=== PATIENT | male | born 1950 | race Caucasian/White ===

== ENCOUNTER 2020-07-17 16:34 | Emergency (ER) | payer MEDICARE ==
--- NOTE | 2020-07-17 20:23 | ED ---
Psych HPI - General Chief Complaint: Psychiatric Symptoms Stated Complaint: Mental health Time Seen by Provider: 07/17/20 20:01 Source: patient, family, RN notes reviewed Mode of arrival: ambulatory - History of Present Illness Initial Comments: Patient is a 69-year-old male brought to emergency by his and daughter for dementia. They note that he needed an evaluation and a transfer noticeable hospital to a nursing facility that can take care of him. Daughter does have a friend at the nurse at [facility] and has secured a bed. He was pleasantly confused falling in bed during exam and interview. He is no apparent distress pain. He denied any chest pain first breath headache nausea vomiting diarrhea constipation fever fatigue chills. - Related Data Home Medications Medication Instructions Recorded Confirmed Escitalopram [Lexapro] 20 mg PO DAILY 07/17/20 07/17/20 LORazepam 0.5 mg PO DAILY PRN 07/17/20 07/17/20 LORazepam [Ativan] 1 mg PO BID 07/17/20 07/17/20 traZODone HCL [Desyrel] 150 mg PO HS 07/17/20 07/17/20 Allergies Allergy/AdvReac Type Severity Reaction Status Date / Time No Known Allergies Allergy Verified 07/17/20 21:16 Review of Systems ROS Statement: Those systems with pertinent positive or pertinent negative responses have been documented in the HPI. ROS Other: All systems not noted in ROS Statement are negative. Past Medical History Past Medical History: Dementia, Hyperlipidemia, Hypertension Additional Past Medical History / Comment(s): alzheimers History of Any Multi-Drug Resistant Organisms: None Reported Past Surgical History: Heart Catheterization With Stent, Orthopedic Surgery Additional Past Surgical History / Comment(s): testicle cancer Past Psychological History: No Psychological Hx Reported Smoking Status: Never smoker Past Alcohol Use History: None Reported Past Drug Use History: None Reported General Exam Limitations: physical limitation General appearance: alert, in no apparent distress Head exam: Present: atraumatic, normocephalic, normal inspection Eye exam: Present: normal appearance, PERRL, EOMI. Absent: scleral icterus, conjunctival injection, periorbital swelling Neck exam: Present: normal inspection. Absent: tenderness, meningismus, lymphadenopathy Respiratory exam: Present: normal lung sounds bilaterally. Absent: respiratory distress, wheezes, rales, rhonchi, stridor Cardiovascular Exam: Present: regular rate, normal rhythm, normal heart sounds. Absent: systolic murmur, diastolic murmur, rubs, gallop, clicks GI/Abdominal exam: Present: soft, normal bowel sounds. Absent: distended, te nderness, guarding, rebound, rigid Extremities exam: Present: normal inspection, full ROM, normal capillary refill. Absent: tenderness, pedal edema, joint swelling, calf tenderness Neurological exam: Present: alert, CN II-XII intact Psychiatric exam: Present: normal affect, normal mood Skin exam: Present: warm, dry, intact, normal color. Absent: rash Course Vital Signs 07/17/20 17:36 Temperature 98.1 F Pulse Rate 63 Respiratory 18 Rate Blood Pressure 155/84 O2 Sat by Pulse 98 Oximetry Medical Decision Making - Medical Decision Making 69-year-old male with dementia. Labs ordered. EPS aware. Case discussed with Dr. Adams. Patient will be transferred to [facility] for placement in a facility. Disposition Clinical Impression: Alzheimer's dementia Disposition: TRANSFER TO PSYCH HOSP/UNIT Condition: Stable Is patient prescribed a controlled substance at d/c from ED?: No Referrals: Nonstaff,Physician [Primary Care Provider] - 1-2 days Time of Disposition: 21:40
[2020-07-17 21:46] LABS: Glucose,Whole Blood 98 mg/dL (75-99)
[2020-07-17 22:06] LABS: HCT 40.3 % (39.0-53.0); HGB 14.6 gm/dL (13.0-17.5); MCH 33.1 pg (25.0-35.0); MCHC 36.3 g/dL (31.0-37.0); MCV 91.2 fL (80.0-100.0); Mean Platelet Volume 7.2; Platelet Count 174 k/uL (150-450); RBC 4.42 m/uL (4.30-5.90); RDW 12.6 % (11.5-15.5); WBC 6.4 k/uL (3.8-10.6)
[2020-07-17 22:24] LABS: ALT 22 U/L (4-49); AST 26 U/L (17-59); African American GFR (CKD) >90 (>60 ml/min/1.73 sqM); Albumin 4.2 g/dL (3.5-5.0); Alkaline Phosphatase 82 U/L (38-126); Anion Gap 11 mmol/L; Blood Urea Nitrogen 17 mg/dL (9-20); Calcium 9.1 mg/dL (8.4-10.2); Carbon Dioxide 21 mmol/L (22-30); Chloride 107 mmol/L (98-107); Glucose 103 mg/dL (74-99); Non-African American GFR(CKD) 80 (>60 ml/min/1.73 sqM); Potassium 3.8 mmol/L (3.5-5.1); Sodium 139 mmol/L (137-145); Total Bilirubin 0.8 mg/dL (0.2-1.3); Total Protein 7.2 g/dL (6.3-8.2)
[2020-07-17 23:01] VITALS: RESP 18
[2020-07-17] MEDS ORDERED: LORazepam 1 MG TAB PO STA (23:06)
[2020-07-17] MEDS ORDERED: traZODone HCL 50 MG TAB PO ONE (23:07)
[2020-07-18] MEDS ORDERED: LORazepam 2 MG/ML INJ IM STA (05:07)
[2020-07-18 05:29] LABS: Appearance,Urine Clear (Clear); Bacteria,Urine Rare /hpf; Bilirubin,Urine Negative (Negative); Blood,Urine Negative (Negative); Color,Urine Yellow; Glucose,Urine (UA) Negative (Negative); Ketones,Urine Negative (Negative); Leukocyte Esterase,Urine Trace (Negative); Mucus,Urine Many /hpf; Nitrite,Urine Negative (Negative); PH, Urine 5.5 (5.0-8.0); Protein,Urine Negative (Negative); RBC,Urine 1 /hpf (0-5); Specific Gravity,Urine 1.019 (1.001-1.035); Squamous Epithelial Cell,Urine 1 /hpf (0-4); Urobilinogen,Urine <2.0 mg/dL (<2.0); WBC,Urine 6 /hpf (0-5)
[2020-07-18 09:21] LABS: Urine Alcohol Negative (Negative); Urine Barbiturate Negative (Negative); Urine Cocaine Negative (Negative); Urine Methadone Negative (Negative); Urine Opiates Negative (Negative); Urine Phencyclidine Negative (Negative)
[2020-07-18 12:14] VITALS: BP 145/75; PULSE 65; TEMP 98.5
[2020-07-18] MEDS ORDERED: ZIPRASIDONE 20 MG VIAL IM STA (12:20)
== END 2020-07-18 12:40 ==
LOC: EC 16:34
DX: G30.9 Alzheimer's disease, unspecified (principal); F02.80 Dementia in other diseases classified elsewhere, unspecified severity, without behavioral disturbance, psychotic disturbance, mood disturbance, and anxiety; E78.5 Hyperlipidemia, unspecified; I10 Essential (primary) hypertension; Z79.899 Other long term (current) drug therapy; Z20.822 Contact with and (suspected) exposure to COVID-19
CPT/HCPCS: 99285; 96372 ×2; 36415; 80053; 85027; 81001; 80306; 87635; J2060; J3486

== ENCOUNTER 2021-05-04 13:40 | Observation (INO) | payer MEDICARE ==
--- NOTE | 2021-05-04 14:19 | ED ---
General Adult HPI - General Chief complaint: Psychiatric Symptoms Stated complaint: Mental Health Time Seen by Provider: 05/04/21 13:50 Source: patient, EMS, RN notes reviewed, old records reviewed Mode of arrival: EMS Limitations: altered mental status - History of Present Illness Initial comments: This is a 70-year-old male who presents emergency Department with a past medical history significant for dementia. Patient lives in adult foster care facility. According to family they do believe he's had some falls recently because of unstable last few days been unable to walk. Patient has been brought in today because he is becoming violent with staff and trying to bite and hit them. Family doesn't know much more than this because they are unable to see him regularly and the patient is unable to give any history at all. There's been no reported history of any fever there's been no reported history of significant trauma though family states they did indicate he threw himself on the floor one point. - Related Data Home Medications Medication Instructions Recorded Confirmed Acetaminophen Tab [Tylenol] 650 mg PO Q4H PRN 05/04/21 05/04/21 Benadryl [place] 2-0.1% 1 applic TOPICAL QID PRN 05/04/21 05/04/21 Cholecalciferol (Vitamin D3) 125 mcg PO DAILY@1800 05/04/21 05/04/21 [Vitamin D3 (125 MCG = 5,000 IU)] Clotrimazole/Betameth Cream 1 applic TOPICAL BID@0800,199905/04/21 05/04/21 [Lotrisone] Cyanocobalamin (Vitamin B-12) 1,000 mcg PO DAILY@0800 05/04/21 05/04/21 [Vitamin B-12] Divalproex Sprinkle [Depakote 250 mg PO BID@0800,1800 05/04/21 05/04/21 Sprinkle] Kaolin Pectin Suspension 2 tbsp PO DAILY PRN 05/04/21 05/04/21 Mag Hydrox/Aluminum Hyd/Simeth 15 ml PO BID PRN 05/04/21 05/04/21 [Mylanta Maximum Strength Liq] Magnesium Hydroxide [Milk of 2,400 mg PO HS PRN 05/04/21 05/04/21 Magnesia] Nystatin 100,000Unit/gm Cream 1 applic TOPICAL BID@0800,1800 05/04/21 05/04/21 [Mycostatin Cream] QUEtiapine [SEROquel] 25 mg PO BID@0800,1800 05/04/21 05/04/21 Triamcinolone 0.1% Cream [Kenalog 1 applicatio TOPICAL DAILY@0800 05/04/21 05/04/21 0.1% Cream] traZODone HCL 150 mg PO HS@1800 05/04/21 05/04/21 Allergies Allergy/AdvReac Type Severity Reaction Status Date / Time No Known Allergies Allergy Verified 05/04/21 18:03 Review of Systems ROS Statement: Those systems with pertinent positive or pertinent negative responses have been documented in the HPI. ROS Other: All systems not noted in ROS Statement are negative. Past Medical History Past Medical History: Cancer, Dementia, Hyperlipidemia, Hypertension Additional Past Medical History / Comment(s): alzheimers, testicular cancer History of Any Multi-Drug Resistant Organisms: None Reported Past Surgical History: Heart Catheterization With Stent, Orthopedic Surgery Additional Past Surgical History / Comment(s): testicle cancer Past Psychological History: No Psychological Hx Reported Smoking Status: Never smoker Past Alcohol Use History: None Reported Past Drug Use History: None Reported - Past Family History Father Family Medical History: Myocardial Infarction ([place]) Additional Family Medical History / Comment(s): young from [place] Brother(s) Family Medical History: Myocardial Infarction ([place]) Additional Family Medical History / Comment(s): young from [place] General Exam - General Exam Comments Initial Comments: GENERAL: Patient is well-developed and well-nourished. Patient is nontoxic and well- hydrated and is in no acute distress. Patient gets irritated with any kind of physical touching it is difficult to assess adjacent any pain anywhere ENT: Neck is soft and supple. No significant lymphadenopathy is noted. Oropharynx is clear. Moist mucous membranes. Neck has full range of motion without eliciting any pain. EYES: The sclera were anicteric and conjunctiva were pink and moist. Extraocular movements were intact and pupils were equal round and reactive to light. Eyelids were unremarkable. PULMONARY: Unlabored respirations. Good breath sounds bilaterally. No audible rales rhonchi or wheezing was noted. CARDIOVASCULAR: There is a regular rate and rhythm without any murmurs gallops or rubs. ABDOMEN: Soft and nontender with normal bowel sounds. SKIN: Skin is clear with no lesions or rashes and otherwise unremarkable. NEUROLOGIC: Patient is alert and oriented 0 which according to family this is baseline. Cranial nerves II through XII are grossly intact. Patient appears to move his upper extremities fine but it is difficult to assess lower extremities consistent does not follow commands MUSCULOSKELETAL: Patient moves both lower extremities but not very much so it's difficult to tell if he has any discomfort in his legs. No lower extremity swelling or edema. No calf tenderness. LYMPHATICS: No significant lymphadenopathy is noted PSYCHIATRIC: Unable to evaluate Limitations: altered mental status Course Vital Signs 05/04/21 05/04/21 05/04/21 13:49 16:00 19:00 Temperature 98.1 F 99.2 F Pulse Rate 86 98 76 Respiratory 20 22 16 Rate Blood Pressure 143/96 151/87 146/81 O2 Sat by Pulse 99 97 94 L Oximetry Medical Decision Making - Medical Decision Making Patient received monoclonal antibodies. Patient received some potassium chloride Patient received normal saline a liter for dehydration. - Lab Data Result diagrams: 05/04/21 15:49 05/04/21 15:49 Lab Results 05/04/21 05/04/21 05/04/21 Range/Units 15:42 15:49 15:49 WBC 5.1 (3.8-10.6) k/uL RBC 4.23 L (4.30-5.90) m/uL Hgb 13.4 (13.0-17.5) gm/dL Hct 39.3 (39.0-53.0) % MCV 92.9 (80.0-100.0) fL MCH 31.7 (25.0-35.0) pg MCHC 34.2 (31.0-37.0) g/dL RDW 13.3 (11.5-15.5) % Plt Count 121 L (150-450) k/uL MPV 8.7 Neutrophils % 75 % Lymphocytes % 14 % Monocytes % 7 % Eosinophils % 0 % Basophils % 0 % Neutrophils # 3.8 (1.3-7.7) k/uL Lymphocytes # 0.7 L (1.0-4.8) k/uL Monocytes # 0.4 (0-1.0) k/uL Eosinophils # 0.0 (0-0.7) k/uL Basophils # 0.0 (0-0.2) k/uL Sodium 139 (137-145) mmol/L Potassium 3.2 L (3.5-5.1) mmol/L Chloride 103 (98-107) mmol/L Carbon Dioxide 28 (22-30) mmol/L Anion Gap 8 mmol/L BUN 28 H (9-20) mg/dL Creatinine 1.14 (0.66-1.25) mg/dL Est GFR (CKD-EPI)AfAm 76 (>60 ml/min/1.73 sqM) Est GFR (CKD-EPI)NonAf 66 (>60 ml/min/1.73 sqM) Glucose 99 (74-99) mg/dL Calcium 8.3 L (8.4-10.2) mg/dL Total Bilirubin 0.8 (0.2-1.3) mg/dL AST 66 H (17-59) U/L ALT 36 (4-49) U/L Alkaline Phosphatase 62 (38-126) U/L Total Protein 6.7 (6.3-8.2) g/dL Albumin 3.3 L (3.5-5.0) g/dL Vitamin B12 1474.0 H (200.0-944.0) pg/mL Folate 10.10 (4.40-31.00) ng/mL Urine Color Urine Appearance (Clear) Urine pH (5.0-8.0) Ur Specific [place] (1.001-1.035) Urine Protein (Negative) Urine Glucose (UA) (Negative) Urine Ketones (Negative) Urine Blood (Negative) Urine Nitrite (Negative) Urine Bilirubin (Negative) Urine Urobilinogen (<2.0) mg/dL Ur Leukocyte Esterase (Negative) Urine RBC (0-5) /hpf Urine WBC (0-5) /hpf Ur Squamous Epith Cells (0-4) /hpf Urine Mucus (None) /hpf Urine Opiates Screen (NotDetected) Ur Oxycodone Screen (NotDetected) Urine Methadone Screen (NotDetected) Ur Propoxyphene Screen (NotDetected) Ur Barbiturates Screen (NotDetected) Valproic Acid 18.8 ug/mL U Tricyclic Antidepress (NotDetected) Ur Phencyclidine Scrn (NotDetected) Ur Amphetamines Screen (NotDetected) U Methamphetamines Scrn (NotDetected) U Benzodiazepines Scrn (NotDetected) Urine Cocaine Screen (NotDetected) U Marijuana (THC) Screen (NotDetected) Serum Alcohol <10 mg/dL Coronavirus (PCR) (Not Detectd) 05/04/21 05/04/21 Range/Units 15:49 16:55 WBC (3.8-10.6) k/uL RBC (4.30-5.90) m/uL Hgb (13.0-17.5) gm/dL Hct (39.0-53.0) % MCV (80.0-100.0) fL MCH (25.0-35.0) pg MCHC (31.0-37.0) g/dL RDW (11.5-15.5) % Plt Count (150-450) k/uL MPV Neutrophils % % Lymphocytes % % Monocytes % % Eosinophils % % Basophils % % Neutrophils # (1.3-7.7) k/uL Lymphocytes # (1.0-4.8) k/uL Monocytes # (0-1.0) k/uL Eosinophils # (0-0.7) k/uL Basophils # (0-0.2) k/uL Sodium (137-145) mmol/L Potassium (3.5-5.1) mmol/L Chloride (98-107) mmol/L Carbon Dioxide (22-30) mmol/L Anion Gap mmol/L BUN (9-20) mg/dL Creatinine (0.66-1.25) mg/dL Est GFR (CKD-EPI)AfAm (>60 ml/min/1.73 sqM) Est GFR (CKD-EPI)NonAf (>60 ml/min/1.73 sqM) Glucose (74-99) mg/dL Calcium (8.4-10.2) mg/dL Total Bilirubin (0.2-1.3) mg/dL AST (17-59) U/L ALT (4-49) U/L Alkaline Phosphatase (38-126) U/L Total Protein (6.3-8.2) g/dL Albumin (3.5-5.0) g/dL Vitamin B12 (200.0-944.0) pg/mL Folate (4.40-31.00) ng/mL Urine Color Dark Yellow Urine Appearance Clear (Clear) Urine pH 6.0 (5.0-8.0) Ur Specific [place] 1.031 (1.001-1.035) Urine Protein 1+ H (Negative) Urine Glucose (UA) Negative (Negative) Urine Ketones 1+ H (Negative) Urine Blood Negative (Negative) Urine Nitrite Negative (Negative) Urine Bilirubin 1+ H (Negative) Urine Urobilinogen 8.0 (<2.0) mg/dL Ur Leukocyte Esterase Small H (Negative) Urine RBC <1 (0-5) /hpf Urine WBC 8 H (0-5) /hpf Ur Squamous Epith Cells 4 (0-4) /hpf Urine Mucus Rare H (None) /hpf Urine Opiates Screen Not Detected (NotDetected) Ur Oxycodone Screen Not Detected (NotDetected) Urine Methadone Screen Not Detected (NotDetected) Ur Propoxyphene Screen Not Detected (NotDetected) Ur Barbiturates Screen Not Detected (NotDetected) Valproic Acid ug/mL U Tricyclic Antidepress Detected H (NotDetected) Ur Phencyclidine Scrn Not Detected (NotDetected) Ur Amphetamines Screen Not Detected (NotDetected) U Methamphetamines Scrn Not Detected (NotDetected) U Benzodiazepines Scrn Not Detected (NotDetected) Urine Cocaine Screen Not Detected (NotDetected) U Marijuana (THC) Screen Not Detected (NotDetected) Serum Alcohol mg/dL Coronavirus (PCR) Detected A (Not Detectd) Disposition Clinical Impression: COVID-19, Dehydration, Acute psychosis, Hypokalemia Disposition: ADMITTED IP TO THIS HOSP
[2021-05-04] MEDS ORDERED: ZIPRASIDONE 20 MG VIAL IM STA (15:08)
[2021-05-04] MEDS ORDERED: LORazepam 2 MG/ML INJ IM STA (15:14)
[2021-05-04 16:16] LABS: ALT 36 U/L (4-49); AST 66 U/L (17-59); African American GFR (CKD) 76 (>60 ml/min/1.73 sqM); Albumin 3.3 g/dL (3.5-5.0); Alcohol <10 mg/dL; Alkaline Phosphatase 62 U/L (38-126); Anion Gap 8 mmol/L; Basophils % (A) 0 %; Blood Urea Nitrogen 28 mg/dL (9-20); Calcium 8.3 mg/dL (8.4-10.2); Carbon Dioxide 28 mmol/L (22-30); Chloride 103 mmol/L (98-107); Eosinophils % (A) 0 %; Glucose 99 mg/dL (74-99); HCT 39.3 % (39.0-53.0); HGB 13.4 gm/dL (13.0-17.5); Lymphocytes # (A) 0.7 k/uL (1.0-4.8); Lymphocytes % (A) 14 %; MCH 31.7 pg (25.0-35.0); MCHC 34.2 g/dL (31.0-37.0); MCV 92.9 fL (80.0-100.0); Mean Platelet Volume 8.7; Monocytes # (A) 0.4 k/uL (0-1.0); Monocytes % (A) 7 %; Neutrophils # (A) 3.8 k/uL (1.3-7.7); Neutrophils % (A) 75 %; Non-African American GFR(CKD) 66 (>60 ml/min/1.73 sqM); Platelet Count 121 k/uL (150-450); Potassium 3.2 mmol/L (3.5-5.1); RBC 4.23 m/uL (4.30-5.90); RDW 13.3 % (11.5-15.5); Sodium 139 mmol/L (137-145); Total Bilirubin 0.8 mg/dL (0.2-1.3); Total Protein 6.7 g/dL (6.3-8.2); WBC 5.1 k/uL (3.8-10.6)
[2021-05-04 16:20] LABS: Valproic Acid (Depakene) 18.8 ug/mL
--- NOTE | 2021-05-04 16:32 | CT ---
EXAMINATION TYPE: CT brain andree wo con DATE OF EXAM: 05/04/2021 COMPARISON: None HISTORY: trauma, inability to walk CT DLP: 1462.7 mGycm, Automated exposure control for dose reduction was used. CONTRAST: Patient injected with 0 mL of Isovue 300. CT of the brain is performed utilizing 3 mm thick sections through the posterior fossa and 3 mm thick sections through the remaining calvarium. Study is performed within 24 hours of arrival to the hospital. No abnormal hyperdensity is present to suggest an acute intracranial hemorrhage. No mass lesion is evident. No acute infarcts are evident. Ventricles and sulci are prominent for the patient age. Paranasal sinuses and mastoid air cells within the [id number] are clear. IMPRESSIONS: 1. Atrophy. 2. No acute intracranial process radiographically evident. CT cervical spine. COMPARISON: None CT of the cervical spine is performed in the axial plane at 2 mm thick sections. Reconstructed image s in the coronal, and sagittal plane are reviewed on the computer. No acute fractures are evident. There is some straightening of the cervical spine in the sagittal plane. There is narrowing of the disc height at C5-C6. Uncovertebral joint hypertrophy is present bilaterall y contributing to bilateral moderate foraminal narrowing. Milder degenerative disc changes are presen t through the remaining portions of the cervical spine. Prevertebral space is normal. Some anterior vertebral body spurring is noted. Posterior spinal lamell ar line is intact. Vertebral body heights are preserved. No spinal canal stenosis is evident. IMPRESSIONS: 1. Degenerative disc changes greatest at C5-6. 2. Uncovertebral joint hypertrophy contributing to moderate bilateral C5-6 foraminal narrowing.
--- NOTE | 2021-05-04 16:58 | CT ---
EXAMINATION TYPE: CT pelvis wo con DATE OF EXAM: 05/04/2021 COMPARISON: None HISTORY: trauma, inability to walk CT DLP: 430.8 mGycm Automated exposure control for dose reduction was used. Images obtained from the level of L4 to the proximal femurs without contrast. There is a mild degenerative first degree L4-5 spondylolisthesis. The sacrum and coccyx appear intact sacroiliac joint spaces are fairly normal. Bony pelvis is intact. Pubic symphysis appears normal. Proximal femurs and hip joints appear intact. There is no evidence of hip fracture. Bladder distends smoothly. There is no evidence of a pelvic mass. There are sigmoid diverticula. Ther e is no diverticulitis. IMPRESSION: No evidence of a fracture. Mild sigmoid diverticulosis.
[2021-05-04] MEDS ORDERED: BAMLANIVIMAB (EUA) 700 MG, ETESEVIMAB (EUA) 1,400 MG in SODIUM CHLORIDE 0.9% 100 ML IVPB ONE (17:00)
[2021-05-04] MEDS ORDERED: SODIUM CHLORIDE 0.9% 50 ML IVPB ONE (17:00)
[2021-05-04 17:02] LABS: Appearance,Urine Clear (Clear); Bilirubin,Urine 1+ (Negative); Blood,Urine Negative (Negative); Color,Urine Dark Yellow; Glucose,Urine (UA) Negative (Negative); Ketones,Urine 1+ (Negative); Leukocyte Esterase,Urine Small (Negative); Mucus,Urine Rare /hpf; Nitrite,Urine Negative (Negative); Protein,Urine 1+ (Negative); RBC,Urine <1 /hpf (0-5); Specific Gravity,Urine 1.031 (1.001-1.035); Squamous Epithelial Cell,Urine 4 /hpf (0-4); WBC,Urine 8 /hpf (0-5)
[2021-05-04 17:09] LABS: Amphetamine Screen,Urine Not Detected (NotDetected); Barbiturate Screen,Urine Not Detected (NotDetected); Benzodiazepines Screen,Urine Not Detected (NotDetected); Cocaine Screen,Urine Not Detected (NotDetected); Methadone Screen, Urine Not Detected (NotDetected); Opiate Screen,Urine Not Detected (NotDetected); Oxycodone Screen, Urine Not Detected (NotDetected); Phencyclidine Screen,Urine Not Detected (NotDetected); Tricyclic Antidepressant,Urine Detected (NotDetected); Urn Cannabinoid Scrn Not Detected (NotDetected)
[2021-05-04] MEDS ORDERED: SODIUM CHLORIDE 0.9% 1,000 ML IV ONE ×2 (17:13→17:48)
[2021-05-04] MEDS ORDERED: POTASSIUM CHLORIDE 20 MEQ in WATER FOR INJECTION 1 100ML.BAG IVPB STA (17:16)
[2021-05-04] MEDS ORDERED: CALCIUM CARBONATE 500 MG CHEWABLE PO PRN (22:47)
[2021-05-04] MEDS ORDERED: NALOXONE 0.4 MG/ML 1 ML VIAL IV PRN (22:47)
[2021-05-04] MEDS ORDERED: ONDANSETRON 4 MG/2 ML VIAL IVP PRN (22:47)
--- NOTE | 2021-05-04 22:57 | P.HPIM ---
History of Present Illness H&P Date: 05/04/21 Chief Complaint: Abnormal behavior This is a 70-year-old patient, who was brought to the ER by the EMS. Patient's baseline is AO 1. By the staff patient has a history of dementia and has been worsening. He has been displaying aggressive behavior hitting and biting. Markus michel and the staff requested transport to the hospital for placement into geriatrics psych. No fever chills reported. Patient himself is unable to give any history. mumbling laying moving about in bed. Patient was evaluated by Dr. Ramos in the ER. Patient did test positive. No COVID symptoms are present. Because COVID patient cannot be admitted to the hospital psychiatry unit she be admitted to medicine service. In July of this year patient was transferred to [facility] for similar presentation. Patient in the ER was given BAM antibody. Review of systems: Patient unable to answer Past medical history to include: Dementia, hypertension, hyperlipidemia, Alzheimer's, testicle cancer, CAD with stent Social history: Apparently lives at [facility]. No history of alcohol or smoking reported. Family history: Patient cannot tell Physical examination: VITAL SIGNS: 99.2, 98, 22, 151/87, 97% on room air GENERAL: BMI 24.4, laying in bed, somewhat delirious. EYES: Pupils equal. Conjunctiva normal. HEENT: External appearance of nose and ears normal, oral cavity dry mucous membranes. NECK: JVD unable to assess; masses not palpable. HEART: First and second heart sounds are normal; no edema. LUNGS: Respiratory rate normal; clear to auscultation. ABDOMEN: Soft, nontender, liver spleen not palpable, no masses palpable. PSYCH: [Patient is delirious cannot be assessed. MUSCULOSKELETAL:No Clubbing/cyanosis;muscles-grossly intact. Some superficial bruising on the dose NEUROLOGICAL: [Cranial nerves grossly intact; no facial asymmetry, moving all 4 limbs LYMPHATICS: No lymph nodes palpable in the axilla and neck Assessment and plan: -Advanced cognitive impairment from dementia. Associated with aggressive behavior. Patient the ER did receive Geodon 20 mg IV 1. Also Ativan 2 mg IM 1. Sitter at all times until cleared by psychiatry. Consult psychiatry. -COVID 19. No fever or chills have been reported. His pulse ox is good on room air. Patient received BAM antibodies in the ER. No indication for steroids. -Hyperlipidemia Lipitor 20 mg daily at bedtime -Essential hypertension Catapres patch 0.1 -CAD with stent Aspirin 81 mg a day Aspirin. Catapres patch. Lipitor. Sitter. Psychiatry consultation. Patient has been medically cleared to be transferred to psychiatry placement/as evaluated by psychiatry team. Past Medical History Past Medical History: Cancer, Dementia, Hyperlipidemia, Hypertension Additional Past Medical History / Comment(s): alzheimers, testicular cancer History of Any Multi-Drug Resistant Organisms: None Reported Past Surgical History: Heart Catheterization With Stent, Orthopedic Surgery Additional Past Surgical History / Comment(s): testicle cancer Past Psychological History: No Psychological Hx Reported Smoking Status: Never smoker Past Alcohol Use History: None Reported Past Drug Use History: None Reported Medications and Allergies Home Medications Medication Instructions Recorded Confirmed Type Escitalopram [Lexapro] 20 mg PO DAILY@0800 07/17/20 05/04/21 History Acetaminophen Tab [Tylenol] 650 mg PO Q4H PRN 05/04/21 05/04/21 History Benadryl [place] 2-0.1% 1 applic TOPICAL QID PRN 05/04/21 05/04/21 History Cholecalciferol (Vitamin D3) 125 mcg PO DAILY@1800 05/04/21 05/04/21 History [Vitamin D3 (125 MCG = 5,000 IU)] Clotrimazole/Betameth Cream 1 applic TOPICAL BID@0800,2000 05/04/21 05/04/21 History [Lotrisone] Cyanocobalamin (Vitamin B-12) 1,000 mcg PO DAILY@0800 05/04/21 05/04/21 History [Vitamin B-12] Divalproex Sprinkle [Depakote 250 mg PO BID@0800,1800 05/04/21 05/04/21 History Sprinkle] Kaolin Pectin Suspension 2 tbsp PO DAILY PRN 05/04/21 05/04/21 History Mag Hydrox/Aluminum Hyd/Simeth 15 ml PO BID PRN 05/04/21 05/04/21 History [Mylanta Maximum Strength Liq] Magnesium Hydroxide [Milk of 2,400 mg PO HS PRN 05/04/21 05/04/21 History Magnesia] Nystatin 100,000Unit/gm Cream 1 applic TOPICAL BID@0800,1800 05/04/21 05/04/21 History [Mycostatin Cream] QUEtiapine [SEROquel] 25 mg PO BID@0800,1800 05/04/21 05/04/21 History Triamcinolone 0.1% Cream [Kenalog 1 applicatio TOPICAL DAILY@0800 05/04/21 05/04/21 History 0.1% Cream] guaiFENesin SYRUP 100MG/5ML 200 mg PO Q6H PRN 05/04/21 05/04/21 History [Robitussin] hydrOXYzine pamoate [Vistaril] 50 mg PO Q4H PRN 05/04/21 05/04/21 History traZODone HCL 150 mg PO HS@1800 05/04/21 05/04/21 History Allergies Allergy/AdvReac Type Severity Reaction Status Date / Time No Known Allergies Allergy Verified 05/04/21 18:03 Physical Exam Vitals: Vital Signs Temp Pulse Resp BP Pulse Ox 05/04/21 19:00 76 16 146/81 94 L 05/04/21 16:00 99.2 F 98 22 151/87 97 05/04/21 13:49 98.1 F 86 20 143/96 99 Intake and Output 05/04/21 05/04/21 05/04/21 06:59 14:59 22:59 Other: Weight 81.647 kg Results CBC & Chem 7: 05/04/21 15:49 05/04/21 15:49 Labs: Abnormal Lab Results - Last 24 Hours (Table) 05/04/21 05/04/21 05/04/21 Range/Units 15:49 15:49 15:49 RBC 4.23 L (4.30-5.90) m/uL Plt Count 121 L (150-450) k/uL Lymphocytes # 0.7 L (1.0-4.8) k/uL Potassium 3.2 L (3.5-5.1) mmol/L BUN 28 H (9-20) mg/dL Calcium 8.3 L (8.4-10.2) mg/dL AST 66 H (17-59) U/L Albumin 3.3 L (3.5-5.0) g/dL Urine Protein (Negative) Urine Ketones (Negative) Urine Bilirubin (Negative) Ur Leukocyte Esterase (Negative) Urine WBC (0-5) /hpf Urine Mucus (None) /hpf U Tricyclic Antidepress (NotDetected) Coronavirus (PCR) Detected A (Not Detectd) 05/04/21 Range/Units 16:55 RBC (4.30-5.90) m/uL Plt Count (150-450) k/uL Lymphocytes # (1.0-4.8) k/uL Potassium (3.5-5.1) mmol/L BUN (9-20) mg/dL Calcium (8.4-10.2) mg/dL AST (17-59) U/L Albumin (3.5-5.0) g/dL Urine Protein 1+ H (Negative) Urine Ketones 1+ H (Negative) Urine Bilirubin 1+ H (Negative) Ur Leukocyte Esterase Small H (Negative) Urine WBC 8 H (0-5) /hpf Urine Mucus Rare H (None) /hpf U Tricyclic Antidepress Detected H (NotDetected) Coronavirus (PCR) (Not Detectd)
[2021-05-05] MEDS ORDERED: LACTULOSE 20 GM/30 ML CUP PO PRN (09:00)
[2021-05-05] MEDS: QUEtiapine 25 MG TAB PO SCH ×2 (09:54→17:34)
[2021-05-05] MEDS: DIVALPROEX SPRINKLE 125 MG CAP.SPRINK PO SCH ×2 (09:54→17:34)
[2021-05-05] MEDS ORDERED: chlorproMAZINE 25 MG/ML 2 ML AMP IM PRN (12:59)
--- NOTE | 2021-05-05 13:38 | P.CN ---
Psychiatric Consult - . Consult date: 05/05/21 Consult:: 05/05/21 13:37 IDENTIFYING DATA: This patient is a , retired, 70-year-old male with significant history of major neurocognitive disorder presented to this hospital with acute behavioral changes in the context of covid infection. HISTORY OF PRESENT ILLNESS: The patient presented to the hospital on 05/04/2021, brought in from his intermediate due to increased violent and aggressive behaviors. The patient was determined to be Covid-19 positive and presented with a temperature of 100.3F on initial presenation. The recommendation is that the patient is transferred to a geriatric psychiatric unit however due to his Covid-19 positive status the patient is admitted medically with psychiatry consulted. The patient's home medications of Depakote, trazodone, and Seroquel were continued. The patient was able to take the morning dose of his medications. This provider attempted to evaluate the patient at approximately 1:00 p.m., however the patient is quite somnolent and unable to be woken up at this time. It is noted that the patient has verbalized threats towards his sitter and has had violent outbursts toward staff including swinging violently at them. Collateral information was provided by the patient's daughter Jailene Bates report that the patient had a significant decline since this past Radha. She reports that he was much more verbal and able to interact appropriately with his family. She states that since [place], the patient's speech has declined significantly and he has been more dysarthric. Furthermore, the patient has begun refusing medications which he was adherent to initially. The family is expressing concern as to whether the significant decline is secondary to Covid vs a natural progression of his dementia or a combination of both. The patient is currently under one-to-one supervision. PAST PSYCHIATRIC HISTORY: Patient has a history of major neurocognitive disorder. Patients on medication regimen includes Depakote, Lexapro, Seroquel, and trazodone. The patient has a previous admission to [facility]. No reported history of suicide attempts. PAST MEDICAL HISTORY: Past Medical History: Cancer, Dementia, Hyperlipidemia, Hypertension Additional Past Medical History / Comment(s): alzheimers, testicular cancer History of Any Multi-Drug Resistant Organisms: None Reported Past Surgical History: Heart Catheterization With Stent, Orthopedic Surgery Additional Past Surgical History / Comment(s): testicle cancer Past Psychological History: No Psychological Hx Reported Smoking Status: Never smoker Past Alcohol Use History: None Reported Past Drug Use History: None Reported ALLERGIES: NO KNOWN DRUG ALLERGIES CHEMICAL DEPENDENCY HISTORY: Unable to obtain. FAMILY PSYCHIATRIC/SUBSTANCE USE HISTORY: Family does not report any significant history. SOCIAL HISTORY: Patient is and has 3 daughters and 5 grandchildren. His is listed as his medical power of erisa attorney. He is currently a resident in a intermediate due to his advanced dementia. MENTAL STATUS EXAM: General Appearance: Patient appears to be older than stated age, frail, thin. Behavior: Patient is calmly lying in bed without any agitated behavior. Currently somnolent and snoring. Speech: Unable to assess speech at this time. Mood/Affect: Unable to assess mood. Affect is somnolent. Suicidality/Homicidality: Unable to assess. Perceptions: Unable to assess. Though content/process: Unable to assess. Memory and concentration: As per chart review, the patient is apparently alert and oriented 1 at baseline. Concentration is grossly poor. Judgment and insight: Very poor. IMPRESSIONS: Major neurocognitive disorder, with behavioral disturbances Suspect exacerbation of major neurocognitive disorder due to Covid-19 infection. PLAN: -At this time patient DOES meet criteria for inpatient psychiatric admission. We recommend geriatric psychiatric placement for management of major neurocognitive disorder with behavioral disturbances. -Patient DOES NOT have decision making capacity at this time and is unable to reason through and communicate/appreciate the risks, benefits and alternatives to treatment. -Delirium precautions recommended with patient including - avoiding use of narcotics and PHLEBOTOMY SUPERVISOR sedatives, limit anticholinergic medications when possible, frequent re-orientation, minimize use of restraints, open window shades during the day and close them at night -Would recommend the following medication changes/additions: Okay to continue home medications of Depakote 250 mg by mouth twice a day, Se roquel 25 mg by mouth twice a day, trazodone 150 mg by mouth at bedtime. For agitation, we will order Thorazine 25 mg IM every 6 hours when necessary. -We will order B12 and folate as there is concern that the patient is not eating as well. -We will order EKG for baseline. -Continue 1:1 sitter for safety -Will continue to follow along -When medically stable, patient is eligible for transfer to a geriatric psych bed when available. 05/05/21 13:37
[2021-05-05] MEDS: ACETAMINOPHEN TAB 325 MG TAB PO PRN (14:05)
[2021-05-05] MEDS: NYSTATIN 100,000UNIT/GM CREAM 30 GM TUBE TOPICAL SCH ×2 (14:24→17:34)
[2021-05-05] MEDS: CLOTRIMAZOLE/BETAMETH 1-0.05% CREAM 45 GM TUBE TOPICAL SCH ×2 (14:24→22:23)
[2021-05-05] MEDS: TRIAMCINOLONE 0.1% CREAM 80 GM TUBE TOPICAL SCH (14:24)
[2021-05-05] MEDS: traZODone HCL 50 MG TAB PO SCH (17:34)
--- NOTE | 2021-05-05 21:17 | P.PN ---
Progress Note - Text Progress Note Date: 05/05/21 Chief Complaint: Abnormal behavior This is a 70-year-old patient, who was brought to the ER by the EMS. Patient's baseline is AO 1. By the staff patient has a history of dementia and has been worsening. He has been displaying aggressive behavior hitting and biting. Family and the staff requested transport to the hospital for placement into geriatrics psych. No fever chills reported. Patient himself is unable to give any history. mumbling laying moving about in bed. Patient was evaluated by Dr. Ramos in the ER. Patient did test positive. No COVID symptoms are present. Because COVID patient cannot be admitted to the hospital psychiatry unit she be admitted to medicine service. In July of this year patient was transferred to [facility] for similar presentation. Patient in the ER was given BAM antibody. May 05: Patient remains restless. Cursing out at times. Refusing food. Did take some of his medications. No fever no chills. Seen by psychiatry. Thorazine has been ordered for agitation. Review of systems: Patient unable to answer Active Medications Acetaminophen (Acetaminophen Tab 325 Mg Tab) 650 mg PO Q4H PRN PRN Reason: FEVER, PAIN, OR HEADACHE Last Admin: 05/05/21 14:05 Dose: 650 mg Documented by: Betamethasone/Clotrimazole (Clotrimazole/Betameth 1-0.05% Cream 45 Gm Tube) 1 applic TOPICAL BID@0800,2000 [facility]; Protocol Last Admin: 05/05/21 14:24 Dose: Not Given Documented by: Calcium Carbonate/Glycine (Calcium Carbonate 500 Mg Chewable) 1,000 mg PO Q4HR PRN PRN Reason: Dyspepsia Chlorpromazine HCl (Chlorpromazine 25 Mg/Ml 2 Ml Amp) 25 mg IM Q6HR PRN PRN Reason: Agitation Divalproex Sodium (Divalproex Sprinkle 125 Mg Cap.Sprink) 250 mg PO BID@0800,1800 [facility] Last Admin: 05/05/21 17:34 Dose: 250 mg Documented by: Lactulose (Lactulose 20 Gm/30 Ml Cup) 20 gm PO DAILY PRN PRN Reason: Constipation Naloxone HCl (Naloxone 0.4 Mg/Ml 1 Ml Vial) 0.2 mg IV Q2M PRN PRN Reason: Opioid Reversal Nystatin (Nystatin 100,000unit/Gm Cream 30 Gm Tube) 1 applic TOPICAL BID@0800,1800 [facility]; Protocol Last Admin: 05/05/21 17:34 Dose: 1 applic Documented by: Ondansetron HCl (Ondansetron 4 Mg/2 Ml Vial) 4 mg IVP Q8HR PRN PRN Reason: Nausea And Vomiting Quetiapine Fumarate (Quetiapine 25 Mg Tab) 25 mg PO BID@0800,1800 [facility] Last Admin: 05/05/21 17:34 Dose: 25 mg Documented by: Trazodone HCl (Trazodone Hcl 50 Mg Tab) 150 mg PO HS@1800 [facility] Last Admin: 05/05/21 17:34 Dose: 150 mg Documented by: Triamcinolone Acetonide (Triamcinolone 0.1% Cream 80 Gm Tube) 1 applic TOPICAL DAILY@0800 [facility]; Protocol Last Admin: 05/05/21 14:24 Dose: Not Given Documented by: Past medical history to include: Dementia, hypertension, hyperlipidemia, Alzheimer's, testicle cancer, CAD with stent Social history: Apparently lives at [facility]. No history of alcohol or smoking reported. Family history: Patient cannot tell Physical examination: VITAL SIGNS: 99.7, 73, 18, 136.79, 97% room air GENERAL:, laying in bed, restless EYES: Pupils equal. Conjunctiva normal. HEENT: External appearance of nose and ears normal, oral cavity dry mucous membranes. NECK: JVD unable to assess; masses not palpable. HEART: First and second heart sounds are normal; no edema. LUNGS: Respiratory rate normal; clear to auscultation. ABDOMEN: Soft, nontender, liver spleen not palpable, no masses palpable. PSYCH: [Patient is delirious cannot be assessed. MUSCULOSKELETAL:No Clubbing/cyanosis;muscles-grossly intact. Some superficial bruising on the dose NEUROLOGICAL: [Cranial nerves grossly intact; no facial asymmetry, moving all 4 limbs Assessment and plan: -Advanced cognitive impairment from dementia. Associated with aggressive behavior.: Uncontrolled Thorazine 25 mg IM every 6 when necessary for agitation. Depakote. Seroquel 25 mg twice a day. Trazodone 150 mg daily at bedtime. Sitter at all times , forgetting psychiatric placement. -COVID 19. Pulse ox 97% received BAM antibodies in the ER. No indication for steroids. -Hyperlipidemia Lipitor 20 mg daily at bedtime -Essential hypertension Catapres patch 0.1 if needed -CAD with stent Aspirin 81 mg a day -No code Aspirin. Lipitor. Sitter. Thorazine. Depakote. Seroquel. Trazodone. Follow with psychiatry. Patient is medically stable to be transferred to [facility]
[2021-05-06] MEDS: ACETAMINOPHEN TAB 325 MG TAB PO PRN ×2 (01:56→18:05)
[2021-05-06] MEDS: QUEtiapine 25 MG TAB PO SCH ×2 (09:06→17:13)
[2021-05-06] MEDS: DIVALPROEX SPRINKLE 125 MG CAP.SPRINK PO SCH ×2 (09:06→17:13)
--- NOTE | 2021-05-06 13:18 | P.PN ---
Progress Note - Text Progress Note Date: 05/06/21 Interval History: Patient was seen resting in bed comfortably. He was able to be woken up but was quite somnolent and unable to provide any history to this provider. As per discussion with his nurse, the patient has been able to take his medications when given with apple sauce. He has been noted to like sweet fruits. He has displayed no agitated behaviors overnight and today. Tremors appear to be baseline. Mental Status Exam: General Appearance: Patient appears to be stated age is somnolent. Thin and frail build. Behavior: Patient is calmly seated without any agitated behavior. Stiff posturing with his mouth agape. Speech: Patient's speech is minimal, nonspontaneous. Mood/Affect: Unable to assess. Affect is somnolent. Suicidality/Homicidality: Unable to assess. Perceptions: Unable to assess. Though content/process: Unable to assess. Memory and concentration: Unable to assess. - Grossly poor at baseline. Judgment and insight: Unable to assess. - Grossly poor at baseline. Vital Signs Temp 99.9 F H 05/06/21 09:15 Pulse 79 05/06/21 09:15 Resp 18 05/06/21 09:15 BP 138/82 05/06/21 06:15 Pulse Ox 98 05/06/21 09:15 Intake & Output 05/05/21 05/06/21 05/06/21 18:59 06:59 18:59 Intake Total 200 Balance 200 Intake: Oral 200 Other: Voiding Method Diaper Diaper Incontinent Incontinent # Voids 2 # Bowel Movements 1 Laboratory Results - Last 24 Hours 05/04/21 15:42 Vitamin B12 1474.0 H Assessment Major neurocognitive disorder, with behavioral disturbances Suspect exacerbation of major neurocognitive disorder due to Covid-19 infection. Plan: -Continue your medical management. -At this time patient DOES meet criteria for inpatient psychiatric admission. We recommend geriatric psychiatric placement for management of major neurocognitive disorder with behavioral disturbances. If patient continues to display no significant agitated behaviors we may change our recommendation. -Patient DOES NOT have decision making capacity at this time and is unable to reason through and communicate/appreciate the risks, benefits and alternatives to treatment. -Delirium precautions recommended with patient including - avoiding use of narcotics and SALVAGE GRINDER sedatives, limit anticholinergic medications when possible, frequent re-orientation, minimize use of restraints, open window shades during the day and close them at night -Would recommend the following medication changes/additions: Continue Depakote 250 mg by mouth twice a day, Seroquel 25 mg by mouth twice a day, trazodone 150 mg by mouth at bedtime. For agitation, Thorazine 25 mg IM every 6 hours when necessary. -Continue 1:1 sitter for safety -Will continue to follow along -When medically stable, patient is eligible for transfer to a geriatric psych bed when available.
[2021-05-06] MEDS: NYSTATIN 100,000UNIT/GM CREAM 30 GM TUBE TOPICAL SCH ×2 (13:54→17:18)
[2021-05-06] MEDS: CLOTRIMAZOLE/BETAMETH 1-0.05% CREAM 45 GM TUBE TOPICAL SCH ×2 (13:54→19:00)
[2021-05-06] MEDS: TRIAMCINOLONE 0.1% CREAM 80 GM TUBE TOPICAL SCH (13:54)
--- NOTE | 2021-05-06 16:24 | P.PN ---
Progress Note - Text Progress Note Date: 05/06/21 Chief Complaint: Abnormal behavior This is a 70-year-old patient, who was brought to the ER by the EMS. Patient's baseline is AO 1. By the staff patient has a history of dementia and has been worsening. He has been displaying aggressive behavior hitting and biting. Family and the staff requested transport to the hospital for placement into geriatrics psych. No fever chills reported. Patient himself is unable to give any history. mumbling laying moving about in bed. Patient was evaluated by Dr. Ramos in the ER. Patient did test positive. No COVID symptoms are present. Because COVID patient cannot be admitted to the hospital psychiatry unit she be admitted to medicine service. In July of this year patient was transferred to [facility] for similar presentation. Patient in the ER was given BAM antibody. May 05: Patient remains restless. Cursing out at times. Refusing food. Did take some of his medications. No fever no chills. Seen by psychiatry. Thorazine has been ordered for agitation. May 06: Patient ate some applesauce. Did take his oral medications. Remains confused delirious. Sitter present. Review of systems: Patient unable to answer Active Medications Acetaminophen (Acetaminophen Tab 325 Mg Tab) 650 mg PO Q4H PRN PRN Reason: FEVER, PAIN, OR HEADACHE Last Admin: 05/06/21 01:56 Dose: 650 mg Documented by: Betamethasone/Clotrimazole (Clotrimazole/Betameth 1-0.05% Cream 45 Gm Tube) 1 applic TOPICAL BID@0800,2000 [facility]; Protocol Last Admin: 05/06/21 13:54 Dose: Not Given Documented by: Calcium Carbonate/Glycine (Calcium Carbonate 500 Mg Chewable) 1,000 mg PO Q4HR PRN PRN Reason: Dyspepsia Chlorpromazine HCl (Chlorpromazine 25 Mg/Ml 2 Ml Amp) 25 mg IM Q6HR PRN PRN Reason: Agitation Divalproex Sodium (Divalproex Sprinkle 125 Mg Cap.Sprink) 250 mg PO BID@0800,1800 [facility] Last Admin: 05/06/21 09:06 Dose: 250 mg Documented by: Lactulose (Lactulose 20 Gm/30 Ml Cup) 20 gm PO DAILY PRN PRN Reason: Constipation Naloxone HCl (Naloxone 0.4 Mg/Ml 1 Ml Vial) 0.2 mg IV Q2M PRN PRN Reason: Opioid Reversal Nystatin (Nystatin 100,000unit/Gm Cream 30 Gm Tube) 1 applic TOPICAL BID@0800,1800 [facility]; Protocol Last Admin: 05/06/21 13:54 Dose: Not Given Documented by: Ondansetron HCl (Ondansetron 4 Mg/2 Ml Vial) 4 mg IVP Q8HR PRN PRN Reason: Nausea And Vomiting Quetiapine Fumarate (Quetiapine 25 Mg Tab) 25 mg PO BID@0800,1800 [facility] Last Admin: 05/06/21 09:06 Dose: 25 mg Documented by: Trazodone HCl (Trazodone Hcl 50 Mg Tab) 150 mg PO HS@1800 [facility] Last Admin: 05/05/21 17:34 Dose: 150 mg Documented by: Triamcinolone Acetonide (Triamcinolone 0.1% Cream 80 Gm Tube) 1 applic TOPICAL DAILY@0800 [facility]; Protocol Last Admin: 05/06/21 13:54 Dose: Not Given Documented by: Past medical history to include: Dementia, hypertension, hyperlipidemia, Alzheimer's, testicle cancer, CAD with stent Social history: Apparently lives at [facility]. No history of alcohol or smoking reported. Family history: Patient cannot tell Physical examination: VITAL SIGNS: 99.5, 95, 18, 159 with 73, 97% room air GENERAL:, laying in bed, resting EYES: Pupils equal. Conjunctiva normal. HEENT: External appearance of nose and ears normal, oral cavity dry mucous membranes. NECK: JVD unable to assess; masses not palpable. HEART: First and second heart sounds are normal; no edema. LUNGS: Respiratory rate normal; clear to auscultation. ABDOMEN: Soft, nontender, liver spleen not palpable, no masses palpable. PSYCH: Patient unable to answer questions. MUSCULOSKELETAL:No Clubbing/cyanosis;muscles-grossly intact. Some superficial bruising on the toes NEUROLOGICAL: [Cranial nerves grossly intact; no facial asymmetry, does move all his limbs Assessment and plan: -Advanced cognitive impairment from dementia. Associated with aggressive behavior.: Uncontrolled Thorazine 25 mg IM every 6 when necessary for agitation. Depakote. Seroquel 25 mg twice a day. Trazodone 150 mg daily at bedtime. Sitter at all times , forgetting psychiatric placement. -COVID 19. Pulse ox 97% received BAM antibodies in the ER. No indication for steroids. -Hyperlipidemia Lipitor 20 mg daily at bedtime -Essential hypertension Catapres patch 0.1 if needed -CAD with stent Aspirin 81 mg a day -No code Aspirin. Lipitor. Sitter. Thorazine. Depakote. Seroquel. Trazodone. Follow with psychiatry. Patient is medically stable to be transferred to [facility]
[2021-05-06 17:07] LABS: Folate, Serum 10.1 ng/mL (4.40-31.00)
[2021-05-06] MEDS: traZODone HCL 50 MG TAB PO SCH (17:13)
[2021-05-07] MEDS: DIVALPROEX SPRINKLE 125 MG CAP.SPRINK PO SCH ×2 (09:29→17:10)
[2021-05-07] MEDS: QUEtiapine 25 MG TAB PO SCH ×2 (09:30→17:10)
--- NOTE | 2021-05-07 13:42 | P.PN ---
Progress Note - Text Progress Note Date: 05/07/21 Interval History: Patient was seen resting in bed comfortably. He was woken up and was alert but not oriented to place or time. He was calm and cooperative but responded in one- word replies that were often not related to the question asked. However, the patient did not report any issues regarding pain. As per discussion with his nurse and his sitter, the patient has been eating more and taking his medications. He only displays irritability when attempted to be rolled over. He otherwise has been cooperative and not agitated. Mental Status Exam: General Appearance: Patient appears to be stated age is somnolent. Thin and frail build. Behavior: Patient is calmly seated without any agitated behavior. Stiff posturing with his mouth agape. Speech: Patient's speech is minimal, nonspontaneous. One-word replies. Mood/Affect: Unable to assess. Affect is less somnolent. Suicidality/Homicidality: Unable to assess. Perceptions: Unable to assess. Though content/process: Unable to assess. Memory and concentration: Unable to assess. - Grossly poor at baseline. Judgment and insight: Unable to assess. - Grossly poor at baseline. Vital Signs Temp 98.9 F 05/07/21 09:38 Pulse 91 05/07/21 09:38 Resp 19 05/07/21 09:38 BP 160/66 05/07/21 09:38 Pulse Ox 93 L 05/07/21 09:38 Intake & Output 05/06/21 05/07/21 05/07/21 18:59 06:59 18:59 Other: Voiding Method Diaper Diaper Diaper Incontinent Incontinent Incontinent # Voids 2 Laboratory Results - Last 24 Hours 05/04/21 15:42 Folate 10.10 Assessment Major neurocognitive disorder, with behavioral disturbances Suspect exacerbation of major neurocognitive disorder due to Covid-19 infection. Plan: -Continue your medical management. -At this time patient DOES NOT meet criteria for inpatient psychiatric admission. Patient has not displayed any signifcant agitation since being adherent with medications. He presents as cooperative with only mild episodes of agitation usually occurring in the context of rolling him over. He has not attempted to bite or spit at staff. -Patient DOES NOT have decision making capacity at this time and is unable to reason through and communicate/appreciate the risks, benefits and alternatives to treatment. -Delirium precautions recommended with patient including - avoiding use of narcotics and SEPHORA OPERATIONS CONSULTANT sedatives, limit anticholinergic medications when possible, frequent re-orientation, minimize use of restraints, open window shades during the day and close them at night -Would recommend the following medication changes/additions: Continue Depakote 250 mg by mouth twice a day, Seroquel 25 mg by mouth twice a day, trazodone 150 mg by mouth at bedtime. -Discontinue 1:1 sitter. -Patient is cleared psychiatrically for discharge. Psychiatry will sign off at this time. Thank you for this consult.
[2021-05-07] MEDS: CLOTRIMAZOLE/BETAMETH 1-0.05% CREAM 45 GM TUBE TOPICAL SCH ×2 (16:36→19:39)
[2021-05-07] MEDS: NYSTATIN 100,000UNIT/GM CREAM 30 GM TUBE TOPICAL SCH ×2 (16:36→19:38)
[2021-05-07] MEDS: TRIAMCINOLONE 0.1% CREAM 80 GM TUBE TOPICAL SCH (16:36)
[2021-05-07] MEDS: traZODone HCL 50 MG TAB PO SCH (17:10)
[2021-05-07] MEDS: ACETAMINOPHEN TAB 325 MG TAB PO PRN (18:16)
--- NOTE | 2021-05-07 18:20 | P.PN ---
Progress Note - Text Progress Note Date: 05/07/21 Chief Complaint: Abnormal behavior This is a 70-year-old patient, who was brought to the ER by the EMS. Patient's baseline is AO 1. By the staff patient has a history of dementia and has been worsening. He has been displaying aggressive behavior hitting and biting. Family and the staff requested transport to the hospital for placement into geriatrics psych. No fever chills reported. Patient himself is unable to give any history. mumbling laying moving about in bed. Patient was evaluated by Dr. Ramos in the ER. Patient did test positive. No COVID symptoms are present. Because COVID patient cannot be admitted to the hospital psychiatry unit she be admitted to medicine service. In July of this year patient was transferred to [facility] for similar presentation. Patient in the ER was given BAM antibody. May 05: Patient remains restless. Cursing out at times. Refusing food. Did take some of his medications. No fever no chills. Seen by psychiatry. Thorazine has been ordered for agitation. May 06: Patient ate some applesauce. Did take his oral medications. Remains confused delirious. Sitter present. May 07: Spoke to the sitter the bedside. He did eat a bit better today. Sleepy. No agitation reported. Spoke to manager social media. He'll get back to me about discharge disposition, after he speaks to psychiatry Review of systems: Patient unable to answer Active Medications Acetaminophen (Acetaminophen Tab 325 Mg Tab) 650 mg PO Q4H PRN PRN Reason: FEVER, PAIN, OR HEADACHE Last Admin: 05/06/21 18:05 Dose: 650 mg Documented by: Betamethasone/Clotrimazole (Clotrimazole/Betameth 1-0.05% Cream 45 Gm Tube) 1 applic TOPICAL BID@0800,2000 AMANDA; Protocol Last Admin: 05/07/21 16:36 Dose: Not Given Documented by: Calcium Carbonate/Glycine (Calcium Carbonate 500 Mg Chewable) 1,000 mg PO Q4HR PRN PRN Reason: Dyspepsia Chlorpromazine HCl (Chlorpromazine 25 Mg/Ml 2 Ml Amp) 25 mg IM Q6HR PRN PRN Reason: Agitation Divalproex Sodium (Divalproex Sprinkle 125 Mg Cap.Sprink) 250 mg PO BID@ 0800,1800 [facility]ANDA Last Admin: 05/07/21 17:10 Dose: 250 mg Documented by: Lactulose (Lactulose 20 Gm/30 Ml Cup) 20 gm PO DAILY PRN PRN Reason: Constipation Naloxone HCl (Naloxone 0.4 Mg/Ml 1 Ml Vial) 0.2 mg IV Q2M PRN PRN Reason: Opioid Reversal Nystatin (Nystatin 100,000unit/Gm Cream 30 Gm Tube) 1 applic TOPICAL BID@0800,1800 [facility]ANDA; Protocol Last Admin: 05/07/21 16:36 Dose: Not Given Documented by: Ondansetron HCl (Ondansetron 4 Mg/2 Ml Vial) 4 mg IVP Q8HR PRN PRN Reason: Nausea And Vomiting Quetiapine Fumarate (Quetiapine 25 Mg Tab) 25 mg PO BID@0800,1800 [facility]DA Last Admin: 05/07/21 17:10 Dose: 25 mg Documented by: Trazodone HCl (Trazodone Hcl 50 Mg Tab) 150 mg PO HS@1800 [facility]ANDA Last Admin: 05/07/21 17:10 Dose: 150 mg Documented by: Triamcinolone Acetonide (Triamcinolone 0.1% Cream 80 Gm Tube) 1 applic TOPICAL DAILY@0800 AMANDA; Protocol Last Admin: 05/07/21 16:36 Dose: Not Given Documented by: Past medical history to include: Dementia, hypertension, hyperlipidemia, Alzheimer's, testicle cancer, CAD with stent Social history: Apparently lives at [facility]. No history of alcohol or smoking reported. Family history: Patient cannot tell Physical examination: VITAL SIGNS: 98.9, 86, 17, 120/81, 96% room air GENERAL:, laying in bed, resting EYES: Pupils equal. Conjunctiva normal. HEENT: External appearance of nose and ears normal, oral cavity dry mucous membranes. NECK: JVD unable to assess; masses not palpable. HEART: First and second heart sounds are normal; no edema. LUNGS: Respiratory rate normal; clear to auscultation. ABDOMEN: Soft, nontender, liver spleen not palpable, no masses palpable. PSYCH: Patient unable to answer questions. MUSCULOSKELETAL:No Clubbing/cyanosis;muscles-grossly intact. Some superficial bruising on the toes NEUROLOGICAL: [Cranial nerves grossly intact; no facial asymmetry, does move all his limbs Assessment and plan: -Advanced cognitive impairment from dementia. Associated with aggressive behavior.: More restful lnow. Thorazine 25 mg IM every 6 when necessary for agitation. Depakote. Seroquel 25 mg twice a day. Trazodone 150 mg daily at bedtime. Sitter discontinued by psychiatry. Awaiting to hear from manager social media but disposition -COVID 19. Pulse ox 97% received BAM antibodies in the ER. No indication for steroids. -Hyperlipidemia Lipitor 20 mg daily at bedtime -Essential hypertension Keep the check -CAD with stent Aspirin 81 mg a day -No code Aspirin. Lipitor. Sitter-discontinued. Thorazine. Depakote. Seroquel. Trazodone. Per psychiatry patient does not need [facility] tomorrow. Awaiting to hear from manager social media about disposition back to [facility]
[2021-05-08] MEDS: QUEtiapine 25 MG TAB PO SCH ×2 (08:07→16:56)
[2021-05-08] MEDS: NYSTATIN 100,000UNIT/GM CREAM 30 GM TUBE TOPICAL SCH ×2 (08:07→16:56)
[2021-05-08] MEDS: DIVALPROEX SPRINKLE 125 MG CAP.SPRINK PO SCH ×2 (08:07→16:56)
[2021-05-08] MEDS: CLOTRIMAZOLE/BETAMETH 1-0.05% CREAM 45 GM TUBE TOPICAL SCH ×2 (08:07→21:19)
[2021-05-08] MEDS: TRIAMCINOLONE 0.1% CREAM 80 GM TUBE TOPICAL SCH (08:08)
[2021-05-08] MEDS ORDERED: POTASSIUM CHLORIDE ER 20 MEQ TAB.ER PO STA (14:05)
[2021-05-08] MEDS: traZODone HCL 50 MG TAB PO SCH (16:56)
--- NOTE | 2021-05-08 19:58 | P.PN ---
Progress Note - Text Progress Note Date: 05/08/21 Chief Complaint: Abnormal behavior This is a 70-year-old patient, who was brought to the ER by the EMS. Patient's baseline is AO 1. By the staff patient has a history of dementia and has been worsening. He has been displaying aggressive behavior hitting and biting. Family and the staff requested transport to the hospital for placement into geriatrics psych. No fever chills reported. Patient himself is unable to give any history. mumbling laying moving about in bed. Patient was evaluated by Dr. Ramos in the ER. Patient did test positive. No COVID symptoms are present. Because COVID patient cannot be admitted to the hospital psychiatry unit she be admitted to medicine service. In July of this year patient was transferred to [facility] for similar presentation. Patient in the ER was given BAM antibody. May 05: Patient remains restless. Cursing out at times. Refusing food. Did take some of his medications. No fever no chills. Seen by psychiatry. Thorazine has been ordered for agitation. May 06: Patient ate some applesauce. Did take his oral medications. Remains confused delirious. Sitter present. May 07: Spoke to the sitter the bedside. He did eat a bit better today. Sleepy. No agitation reported. Spoke to long term care social worker. He'll get back to me about discharge disposition, after he speaks to psychiatry May 08: Remains confused. Sitter was discontinued yesterday by Dr. Salmon. Patient is supposed to go back to his assisted living today. Patient's sister called by the hospital saying that she did not want to take the patient back there. Wanted a [facility] placement. I spoke to Dr. Romero to reevaluate this patient. Discharge has been held. Review of systems: Patient unable to answer Active Medications Acetaminophen (Acetaminophen Tab 325 Mg Tab) 650 mg PO Q4H PRN PRN Reason: FEVER, PAIN, OR HEADACHE Last Admin: 05/07/21 18:16 Dose: 650 mg Documented by: Betamethasone/Clotrimazole (Clotrimazole/Betameth 1-0.05% Cream 45 Gm Tube) 1 applic TOPICAL BID@0800,2000 AMANDA; Protocol Last Admin: 05/08/21 08:07 Dose: 1 applic Documented by: Calcium Carbonate/Glycine (Calcium Carbonate 500 Mg Chewable) 1,000 mg PO Q4HR PRN PRN Reason: Dyspepsia Chlorpromazine HCl (Chlorpromazine 25 Mg/Ml 2 Ml Amp) 25 mg IM Q6HR PRN PRN Reason: Agitation Divalproex Sodium (Divalproex Sprinkle 125 Mg Cap.Sprink) 250 mg PO BID@0800,1800 [facility] Last Admin: 05/08/21 16:56 Dose: 250 mg Documented by: Lactulose (Lactulose 20 Gm/30 Ml Cup) 20 gm PO DAILY PRN PRN Reason: Constipation Naloxone HCl (Naloxone 0.4 Mg/Ml 1 Ml Vial) 0.2 mg IV Q2M PRN PRN Reason: Opioid Reversal Nystatin (Nystatin 100,000unit/Gm Cream 30 Gm Tube) 1 applic TOPICAL BID@0800,1800 [facility]; Protocol Last Admin: 05/08/21 16:56 Dose: 1 applic Documented by: Ondansetron HCl (Ondansetron 4 Mg/2 Ml Vial) 4 mg IVP Q8HR PRN PRN Reason: Nausea And Vomiting Quetiapine Fumarate (Quetiapine 25 Mg Tab) 25 mg PO BID@0800,1800 [facility] Last Admin: 05/08/21 16:56 Dose: 25 mg Documented by: Trazodone HCl (Trazodone Hcl 50 Mg Tab) 150 mg PO HS@1800 [facility]AN[facility] Last Admin: 05/08/21 16:56 Dose: 150 mg Documented by: Triamcinolone Acetonide (Triamcinolone 0.1% Cream 80 Gm Tube) 1 applic TOPICAL DAILY@0800 [facility]; Protocol Last Admin: 05/08/21 08:08 Dose: Not Given Documented by: Past medical history to include: Dementia, hypertension, hyperlipidemia, Alzheimer's, testicle cancer, CAD with s tent Social history: Apparently lives at [facility]. No history of alcohol or smoking reported. Family history: Patient cannot tell Physical examination: VITAL SIGNS: 98.3, 85, 20, 160/73, 99% room air GENERAL:, laying in bed, mumbling EYES: Pupils equal. Conjunctiva normal. HEENT: External appearance of nose and ears normal, oral cavity dry mucous membranes. NECK: JVD unable to assess; masses not palpable. HEART: First and second heart sounds are normal; no edema. LUNGS: Respiratory rate normal; clear to auscultation. ABDOMEN: Soft, nontender, liver spleen not palpable, no masses palpable. PSYCH: Mumbling, cannot be assessed MUSCULOSKELETAL:No Clubbing/cyanosis;muscles-grossly intact. Some superficial bruising on the toes NEUROLOGICAL: [Cranial nerves grossly intact; no facial asymmetry, does move all his limbs Assessment and plan: -Advanced cognitive impairment from dementia. Associated with aggressive behavior.: More restful lnow. Thorazine 25 mg IM every 6 when necessary for agitation. Depakote. Seroquel 25 mg twice a day. Trazodone 150 mg daily at bedtime. Sitter discontinued by Dr. Salmon. -COVID 19. Pulse ox 97% received BAM antibodies in the ER. No indication for steroids. -Hyperlipidemia Lipitor 20 mg daily at bedtime -Essential hypertension Keep the check -CAD with stent Aspirin 81 mg a day -No code Discharge paper work was done. Patient's sister called the nurse that she not take the patient back in wanted the patient be placed to [facility]. I spoke to Dr. Romero commission specialist psychiatrist, he will reevaluate the patient and possibly talk to the family.
[2021-05-09] MEDS: DIVALPROEX SPRINKLE 125 MG CAP.SPRINK PO SCH ×2 (08:06→17:27)
[2021-05-09] MEDS: QUEtiapine 25 MG TAB PO SCH ×2 (08:06→17:27)
[2021-05-09] MEDS: NYSTATIN 100,000UNIT/GM CREAM 30 GM TUBE TOPICAL SCH ×2 (08:07→17:29)
[2021-05-09] MEDS: TRIAMCINOLONE 0.1% CREAM 80 GM TUBE TOPICAL SCH (08:07)
[2021-05-09] MEDS: CLOTRIMAZOLE/BETAMETH 1-0.05% CREAM 45 GM TUBE TOPICAL SCH ×2 (08:07→20:00)
--- NOTE | 2021-05-09 10:29 | CONS ---
CONSULTATION DATE OF SERVICE: 05/08/2021 PURPOSE FOR CONSULTATION: Evaluate for behavioral disturbance related to neurocognitive disorder and COVID infection. INTERVAL HISTORY: I refer the reader to Dr. Salmon's previous consultation notes, including his progress note of 05/07/2021. The patient has a diagnosis of dementia. He presented to the hospital with increasing behavioral disturbance. There was concern for delirium. According to Dr. Salmon's assessment yesterday, he has shown good improvement in terms of his behavior. Dr. Miller documented that the patient does not meet criteria for inpatient psychiatric admission. He noted that the patient has not been displaying significant agitation. He has been cooperative and for the most part responds appropriately to staff. When I talked to Nursing today, they note that the patient has generally been calm and quiet. He can sometimes get restless when care is provided, though he has not had any significant resistance, agitation or aggressive behavior. He has been taking his medications. According to the EPS nurse, she talked with the patient's daughter earlier in the day today. The daughter noted that the [facility] where the patient resides is not able to admit the patient until he has had an appropriate period of quarantine. The daughter was requesting continued hospitalization until Monday so that they could coordinate with Social Work and outpatient resources for an appropriate placement for an interim period to address the COVID issues. MENTAL STATUS EXAM: The patient was lying in his bed. He had a soft groaning voice. When I walked in, he was somewhat restless in his bed, though it was not clear what if any problems he was having. He tended to move his right arm back and forth over his head. When I asked questions, he turned a little bit in my direction and stopped his vocalization. He did not respond directly to questions or my presence. He did not appear to be significantly distressed in any way. He appeared oriented only to self. ASSESSMENT: I will continue the current diagnosis and treatment plan. As noted by Dr. Salmon, he does not meet criteria for inpatient psychiatric admission. My recommendation would be to coordinate with family in regard to placement for the interim while dealing with COVID quarantine. MMSHELBYL / TUYETN: [id number] /
--- NOTE | 2021-05-09 16:04 | P.PN ---
Progress Note - Text Progress Note Date: 05/09/21 Chief Complaint: Abnormal behavior This is a 70-year-old patient, who was brought to the ER by the EMS. Patient's baseline is AO 1. By the staff patient has a history of dementia and has been worsening. He has been displaying aggressive behavior hitting and biting. Family and the staff requested transport to the hospital for placement into geriatrics psych. No fever chills reported. Patient himself is unable to give any history. mumbling laying moving about in bed. Patient was evaluated by Dr. Ramos in the ER. Patient did test positive. No COVID symptoms are present. Because COVID patient cannot be admitted to the hospital psychiatry unit she be admitted to medicine service. In July of this year patient was transferred to [facility] for similar presentation. Patient in the ER was given BAM antibody. May 05: Patient remains restless. Cursing out at times. Refusing food. Did take some of his medications. No fever no chills. Seen by psychiatry. Thorazine has been ordered for agitation. May 06: Patient ate some applesauce. Did take his oral medications. Remains confused delirious. Sitter present. May 07: Spoke to the sitter the bedside. He did eat a bit better today. Sleepy. No agitation reported. Spoke to high school social science teacher. He'll get back to me about discharge disposition, after he speaks to psychiatry May 08: Remains confused. Sitter was discontinued yesterday by Dr. Salmon. Patient is supposed to go back to his assisted living today. Patient's sister called by the hospital saying that she did not want to take the patient back there. Wanted a [facility] placement. I spoke to Dr. Romero to reevaluate this patient. Discharge has been held. May 09: Remains delirious. Not really answering questions. Not eating. Follow with psychiatry. Review of systems: Patient unable to answer Active Medications Acetaminophen (Acetaminophen Tab 325 Mg Tab) 650 mg PO Q4H PRN PRN Reason: FEVER, PAIN, OR HEADACHE Last Admin: 05/07/21 18:16 Dose: 650 mg Documented by: Betamethasone/Clotrimazole (Clotrimazole/Betameth 1-0.05% Cream 45 Gm Tube) 1 applic TOPICAL BID@0800,2000 AMAN[facility]; Protocol Last Admin: 05/09/21 08:07 Dose: 1 applic Documented by: Calcium Carbonate/Glycine (Calcium Carbonate 500 Mg Chewable) 1,000 mg PO Q4HR PRN PRN Reason: Dyspepsia Chlorpromazine HCl (Chlorpromazine 25 Mg/Ml 2 Ml Amp) 25 mg IM Q6HR PRN PRN Reason: Agitation Divalproex Sodium (Divalproex Sprinkle 125 Mg Cap.Sprink) 250 mg PO BID@0800,1800 [facility] Last Admin: 05/09/21 08:06 Dose: 250 mg Documented by: Lactulose (Lactulose 20 Gm/30 Ml Cup) 20 gm PO DAILY PRN PRN Reason: Constipation Naloxone HCl (Naloxone 0.4 Mg/Ml 1 Ml Vial) 0.2 mg IV Q2M PRN PRN Reason: Opioid Reversal Nystatin (Nystatin 100,000unit/Gm Cream 30 Gm Tube) 1 applic TOPICAL BID@0800,1800 [facility]; Protocol Last Admin: 05/09/21 08:07 Dose: 1 applic Documented by: Ondansetron HCl (Ondansetron 4 Mg/2 Ml Vial) 4 mg IVP Q8HR PRN PRN Reason: Nausea And Vomiting Quetiapine Fumarate (Quetiapine 25 Mg Tab) 25 mg PO BID@0800,1800 [facility] Last Admin: 05/09/21 08:06 Dose: 25 mg Documented by: Trazodone HCl (Trazodone Hcl 50 Mg Tab) 150 mg PO HS@1800 AMANDA Last Admin: 05/08/21 16:56 Dose: 150 mg Documented by: Triamcinolone Acetonide (Triamcinolone 0.1% Cream 80 Gm Tube) 1 applic TOPICAL DAILY@0800 [facility]; Protocol Last Admin: 05/09/21 08:07 Dose: Not Given Documented by: Past medical history to include: Dementia, hypertension, hyperlipidemia, Alzheimer's, testicle cancer, CAD with stent Social history: Apparently lives at [facility]. No history of alcohol or smoking reported. Family history: Patient cannot tell Physical examination: VITAL SIGNS: 97.2, 83, 17, 95/82, 98% room air GENERAL:, laying in bed, mumbling EYES: Pupils equal. Conjunctiva normal. HEENT: External appearance of nose and ears normal, oral cavity dry mucous membranes. NECK: JVD unable to assess; masses not palpable. HEART: First and second heart sounds are normal; no edema. LUNGS: Respiratory rate normal; clear to auscultation. ABDOMEN: Soft, nontender, liver spleen not palpable, no masses palpable. PSYCH: Mumbling, cannot be assessed MUSCULOSKELETAL:No Clubbing/cyanosis;muscles-grossly intact. Some superficial bruising on the toes NEUROLOGICAL: [Cranial nerves grossly intact; no facial asymmetry, does move all his limbs Assessment and plan: -Advanced cognitive impairment from dementia. Associated with aggressive behavior.: More restful lnow. Thorazine 25 mg IM every 6 when necessary for agitation. Depakote. Seroquel 25 mg twice a day. Trazodone 150 mg daily at bedtime. Sitter discontinued by Dr. Salmon. -COVID 19. Pulse ox 97% received BAM antibodies in the ER. No indication for steroids. -Hyperlipidemia Lipitor 20 mg daily at bedtime -Essential hypertension Keep the check -CAD with stent Aspirin 81 mg a day -Clinically dehydrated -No code Follow as per psychiatry. Encourage oral intake. Afraid patient might put on IV access.
[2021-05-09] MEDS: traZODone HCL 50 MG TAB PO SCH (17:28)
[2021-05-10] MEDS ORDERED: ACETAMINOPHEN IV (For NPO) 1,000 MG in EMPTY BAG 1 BAG IVPB ONE (03:33)
[2021-05-10] MEDS: QUEtiapine 25 MG TAB PO SCH ×3 (08:33→20:14)
[2021-05-10] MEDS: DIVALPROEX SPRINKLE 125 MG CAP.SPRINK PO SCH ×3 (08:33→20:14)
[2021-05-10] MEDS: NYSTATIN 100,000UNIT/GM CREAM 30 GM TUBE TOPICAL SCH ×2 (08:41→16:41)
[2021-05-10] MEDS: CLOTRIMAZOLE/BETAMETH 1-0.05% CREAM 45 GM TUBE TOPICAL SCH ×2 (08:41→21:43)
[2021-05-10] MEDS: TRIAMCINOLONE 0.1% CREAM 80 GM TUBE TOPICAL SCH (08:42)
--- NOTE | 2021-05-10 13:53 | P.PN ---
Progress Note - Text Progress Note Date: 05/10/21 Interval History: Patient was seen resting in bed. He continues to display tremors with his mouth agape. He is minimally responsive to external stimuli. He is unable to answer questions appropriately. As per discussion with staff he has only occasionally eaten and has had intermittent episodes of agitation when the treatment team is attempting to roll him or assess him. There is concern about sleep as well. This provider called the patient's daughter and discussed at length that the patient does not meet criteria for inpatient psychiatric placement and has exclusionary criteria such as COVID +ve status, inability to ambulate, inability to feed self, and inability to engage in talk therapy. The topic of possible comfort measures were brought up. Daughter is concerned that the patient would be leaving the hospital today without appropriate placement. Mental Status Exam: General Appearance: Patient appears to be stated age is somnolent. Thin and frail build. Behavior: Patient is calmly seated without any agitated behavior. Stiff posturing with his mouth agape. Speech: Patient's speech is minimal, nonspontaneous. Non verbal today. Mood/Affect: Unable to assess. Affect is less somnolent. Suicidality/Homicidality: Unable to assess. Perceptions: Unable to assess. Though content/process: Unable to assess. Memory and concentration: Unable to assess. - Grossly poor at baseline. Judgment and insight: Unable to assess. - Grossly poor at baseline. Vital Signs Temp 97.0 F L 05/10/21 10:00 Pulse 81 05/10/21 10:00 Resp 19 05/10/21 10:00 BP 142/87 05/10/21 10:00 Pulse Ox 92 L 05/10/21 10:00 Intake & Output 05/09/21 05/10/21 05/10/21 18:59 06:59 18:59 Other: Voiding Method Diaper Diaper Diaper Incontinent Incontinent Incontinent # Voids 2 4 # Bowel Movements 1 1 Assessment Major neurocognitive disorder, with behavioral disturbances Suspect exacerbation of major neurocognitive disorder due to Covid-19 infection. Plan: -Continue your medical management. -At this time patient DOES NOT meet criteria for inpatient psychiatric admission. Patient has not displayed any signifcant agitation since being adherent with medications. He has some low appetite but likely secondary to adv anced stages of dementia and not necessarily due to a mood disorder. -Patient DOES NOT have decision making capacity at this time and is unable to reason through and communicate/appreciate the risks, benefits and alternatives to treatment. -Delirium precautions recommended with patient including - avoiding use of narcotics and SOLUTION DEVELOPER sedatives, limit anticholinergic medications when possible, frequent re-orientation, minimize use of restraints, open window shades during the day and close them at night -Would recommend the following medication changes/additions: Continue Depakote 250 mg by mouth twice a day, Seroquel 25 mg by mouth twice a day, trazodone 150 mg by mouth at bedtime. We will start remeron 7.5 mg at bedtime for appetite stimulation. -Patient is cleared psychiatrically for discharge. Consider comfort measures. -Psychiatry will continue to follow for agitation/appetite.
[2021-05-10] MEDS: traZODone HCL 50 MG TAB PO SCH ×2 (18:25→20:14)
--- NOTE | 2021-05-10 19:47 | P.PN ---
Progress Note - Text Progress Note Date: 05/10/21 Chief Complaint: Abnormal behavior This is a 70-year-old patient, who was brought to the ER by the EMS. Patient's baseline is AO 1. By the staff patient has a history of dementia and has been worsening. He has been displaying aggressive behavior hitting and biting. Family and the staff requested transport to the hospital for placement into geriatrics psych. No fever chills reported. Patient himself is unable to give any history. mumbling laying moving about in bed. Patient was evaluated by Dr. Ramos in the ER. Patient did test positive. No COVID symptoms are present. Because COVID patient cannot be admitted to the hospital psychiatry unit she be admitted to medicine service. In July of this year patient was transferred to [facility] for similar presentation. Patient in the ER was given BAM antibody. May 05: Patient remains restless. Cursing out at times. Refusing food. Did take some of his medications. No fever no chills. Seen by psychiatry. Thorazine has been ordered for agitation. May 06: Patient ate some applesauce. Did take his oral medications. Remains confused delirious. Sitter present. May 07: Spoke to the sitter the bedside. He did eat a bit better today. Sleepy. No agitation reported. Spoke to manager social services. He'll get back to me about discharge disposition, after he speaks to psychiatry May 08: Remains confused. Sitter was discontinued yesterday by Dr. Salmon. Patient is supposed to go back to his assisted living today. Patient's sister called by the hospital saying that she did not want to take the patient back there. Wanted a [facility] placement. I spoke to Dr. Romero to reevaluate this patient. Discharge has been held. May 09: Remains delirious. Not really answering questions. Not eating. Follow with psychiatry. May 10: Delirious. Eating small amounts. Seen by Dr. Salmon. Suggested comfort measures/hospice. Would be appropriate given the patient's poor quality of life. Spoke to mental health case manager. Also spoke to the hospital medical assisting instructor Dr. Anderson. Updated about the patient. web operations manager spoke to the family. Looking into disposition with hospice.. Sometimes not able to take his medications. Review of systems: Patient unable to answer Active Medications Acetaminophen (Acetaminophen Tab 325 Mg Tab) 650 mg PO Q4H PRN PRN Reason: FEVER, PAIN, OR HEADACHE Last Admin: 05/07/21 18:16 Dose: 650 mg Documented by: Betamethasone/Clotrimazole (Clotrimazole/Betameth 1-0.05% Cream 45 Gm Tube) 1 applic TOPICAL BID@0800,2000 [facility]; Protocol Last Admin: 05/10/21 08:41 Dose: 1 applic Documented by: Calcium Carbonate/Glycine (Calcium Carbonate 500 Mg Chewable) 1,000 mg PO Q4HR PRN PRN Reason: Dyspepsia Chlorpromazine HCl (Chlorpromazine 25 Mg/Ml 2 Ml Amp) 25 mg IM Q6HR PRN PRN Reason: Agitation Divalproex Sodium (Divalproex Sprinkle 125 Mg Cap.Sprink) 250 mg PO BID@0800,1800 [facility] Last Admin: 05/10/21 16:41 Dose: Not Given Documented by: Lactulose (Lactulose 20 Gm/30 Ml Cup) 20 gm PO DAILY PRN PRN Reason: Constipation Mirtazapine (Mirtazapine 15 Mg Tab) 7.5 mg PO HS [facility] Naloxone HCl (Naloxone 0.4 Mg/Ml 1 Ml Vial) 0.2 mg IV Q2M PRN PRN Reason: Opioid Reversal Nystatin (Nystatin 100,000unit/Gm Cream 30 Gm Tube) 1 applic TOPICAL BID@0800,1800 [facility]; Protocol Last Admin: 05/10/21 16:41 Dose: Not Given Documented by: Ondansetron HCl (Ondansetron 4 Mg/2 Ml Vial) 4 mg IVP Q8HR PRN PRN Reason: Nausea And Vomiting Quetiapine Fumarate (Quetiapine 25 Mg Tab) 25 mg PO BID@0800,1800 [facility] Last Admin: 05/10/21 16:41 Dose: Not Given Documented by: Trazodone HCl (Trazodone Hcl 50 Mg Tab) 150 mg PO HS@1800 [facility] Last Admin: 05/10/21 18:25 Dose: Not Given Documented by: Triamcinolone Acetonide (Triamcinolone 0.1% Cream 80 Gm Tube) 1 applic TOPICAL DAILY@0800 [facility]; Protocol Last Admin: 05/10/21 08:42 Dose: Not Given Documented by: Past medical history to include: Dementia, hypertension, hyperlipidemia, Alzheimer's, testicle cancer, CAD with stent Social history: Apparently lives at [facility]. No history of alcohol or smoking reported. Family history: Patient cannot tell Physical examination: VITAL SIGNS: 97.5, 77, 19, 160/85, 91% room air GENERAL:, laying in bed, delirious EYES: Pupils equal. Conjunctiva normal. HEENT: External appearance of nose and ears normal, oral cavity dry mucous membranes. NECK: JVD unable to assess; masses not palpable. HEART: First and second heart sounds are normal; no edema. LUNGS: Respiratory rate normal; clear to auscultation. ABDOMEN: Soft, nontender, liver spleen not palpable, no masses palpable. PSYCH: Mumbling, cannot be assessed MUSCULOSKELETAL:No Clubbing/cyanosis;muscles-grossly intact. Some superficial bruising on the toes NEUROLOGICAL: [Cranial nerves grossly intact; no facial asymmetry, does move all his limbs Assessment and plan: -Advanced cognitive impairment from dementia. Associated with aggressive behavior.: More restful lnow. Thorazine 25 mg IM every 6 when necessary for agitation. Depakote. Seroquel 25 mg twice a day. Trazodone 150 mg daily at bedtime. -COVID 19. Pulse ox 97% received BAM antibodies in the ER. No indication for steroids. -Hyperlipidemia Lipitor 20 mg daily at bedtime -Essential hypertension Keep the check -CAD with stent Aspirin 81 mg a day -Clinically dehydrated -Failure to thrive. Medications are not really working for him. Not able to eat. Not safe to put IV and as he will pull it out. -No code web operations manager spoke to family. Agreeable to hospice. Total time spent about 45 minutes with over 30 minutes of discussion. Possible discharge with hospice tomorrow.
[2021-05-10] MEDS ORDERED: MIRTAZAPINE 15 MG TAB PO SCH (21:00)
[2021-05-10 22:31] VITALS: BP 162/93; RESP 22
[2021-05-11 02:01] VITALS: PULSE 44
[2021-05-11 06:50] VITALS: TEMP 98.5
[2021-05-11] MEDS: DIVALPROEX SPRINKLE 125 MG CAP.SPRINK PO SCH (08:17)
[2021-05-11] MEDS: QUEtiapine 25 MG TAB PO SCH (08:17)
[2021-05-11] MEDS: CLOTRIMAZOLE/BETAMETH 1-0.05% CREAM 45 GM TUBE TOPICAL SCH (08:18)
[2021-05-11] MEDS: NYSTATIN 100,000UNIT/GM CREAM 30 GM TUBE TOPICAL SCH (08:18)
[2021-05-11] MEDS: TRIAMCINOLONE 0.1% CREAM 80 GM TUBE TOPICAL SCH (09:01)
[2021-05-11 12:05] VITALS: BMI 24.4
--- NOTE | 2021-05-11 12:54 | P.PN ---
Progress Note - Text Progress Note Date: 05/11/21 Interval History: Patient was seen resting in bed. He continues to display tremors with his mouth agape but tremors appears to have decreased in severity. Present at bedside are the patient's family. They note that the patient has displayed a significant decrease in agitated behavior. They report he has lost a significant amount of weight since the onset of covid. The patient is intermittently eating and intermittently taking medications. They are meeting with the hospice [facility] today. Mental Status Exam: General Appearance: Patient appears to be stated age is somnolent. Thin and frail build. Behavior: Patient is calmly seated without any agitated behavior. Stiff pos turing with his mouth agape. Speech: Patient's speech is minimal, nonspontaneous. Mood/Affect: Unable to assess. Affect appears somnolent. Suicidality/Homicidality: Unable to assess. Perceptions: Unable to assess. Though content/process: Unable to assess. Memory and concentration: Unable to assess. - Grossly poor at baseline. Judgment and insight: Unable to assess. - Grossly poor at baseline. Assessment Major neurocognitive disorder Suspect exacerbation of major neurocognitive disorder due to Covid-19 infection. Plan: -Continue your medical management. -At this time patient DOES NOT meet criteria for inpatient psychiatric admission. Patient has not displayed any signifcant agitation since being adherent with medications. He has some low appetite but likely secondary to advanced stages of dementia and not necessarily due to a mood disorder. -Patient DOES NOT have decision making capacity at this time and is unable to reason through and communicate/appreciate the risks, benefits and alternatives to treatment. -Medications: Continue Depakote 250 mg by mouth twice a day, Seroquel 25 mg by mouth twice a day, trazodone 150 mg by mouth at bedtime. Discontinue remeron to remit life prolonging measures in the context of hospice/comfort care. -Patient is cleared psychiatrically for discharge. -Psychiatry will sign off at this time.
[2021-05-11] MEDS ORDERED: LORazepam 2 MG/ML INJ IV ONE (13:00)
--- NOTE | 2021-05-11 19:02 | P.DS ---
Providers Date of admission: 05/11/21 07:21 Expected date of discharge: 05/11/21 Attending physician: Alvin Dooley Consults: 05/04/21 17:48 Consult Physician Urgent Consulting Provider: Bryan Salmon Reason/Comments: Acute psychosis, violent behavior Do you want consulting provider notified?: Yes Primary care physician: Physician Nonstaff Hospital Course: Chief Complaint: Abnormal behavior This is a 70-year-old patient, who was brought to the ER by the EMS. Patient's baseline is AO 1. By the staff patient has a history of dementia and has been worsening. He has been displaying aggressive behavior hitting and biting. Family and the staff requested transport to the hospital for placement into geriatrics psych. No fever chills reported. Patient himself is unable to give any history. mumbling laying moving about in bed. Patient was evaluated by Dr. Ramos in the ER. Patient did test positive. No COVID symptoms are present. Because COVID patient cannot be admitted to the hospital psychiatry unit she be admitted to medicine service. In July of this year patient was transferred to [facility] for similar presentation. Patient in the ER was given BAM antibody. Patient is seen by psychiatry. Sitter was placed. Also Thorazine was added. Patient cannot be accepted to [facility] because of positive COVID. Patient underlyi ng mental status did not improve. Patient was cleared by psychiatry to be discharged back to the longterm. Family didn't want to take him back today. Psychiatry did suggest hospice. Patient has not been eating and not taking his medications. Family agreeable to same. May 11. Spoke to the and daughter the bedside. Questions answered. Hospice will be following the patient at the longterm. Discussion and discharge planning more than 35 minutes Consultation: Psychiatry Past medical history to include: Dementia, hypertension, hyperlipidemia, Alzheimer's, testicle cancer, CAD with stent Social history: Apparently lives at [facility]. No history of alcohol or smoking reported. Family history: Patient cannot tell Physical examination: VITAL SIGNS: 98.5, 22, 89% GENERAL:, laying in bed, delirious EYES: Pupils equal. Conjunctiva normal. HEENT: External appearance of nose and ears normal, oral cavity dry mucous membranes. NECK: JVD unable to assess; masses not palpable. HEART: First and second heart sounds are normal; no edema. LUNGS: Respiratory rate normal; clear to auscultation. ABDOMEN: Soft, nontender, liver spleen not palpable, no masses palpable. PSYCH: Mumbling, cannot be assessed MUSCULOSKELETAL:No Clubbing/cyanosis;muscles-grossly intact. Some superficial bruising on the toes NEUROLOGICAL: [Cranial nerves grossly intact; no facial asymmetry, does move all his limbs Assessment and plan: -Advanced cognitive impairment from dementia. Associated with aggressive behavior.: More restful lnow. Depakote. Trazodone 150 mg daily at bedtime. -COVID 19. Pulse ox 97% received BAM antibodies in the ER. No indication for steroids. -Hyperlipidemia -Essential hypertension Keep the check -CAD with stent -Clinically dehydrated -Failure to thrive. Medications are not really working for him. Not able to eat. Not safe to put IV and as he will pull it out. -DO NOT RESUSCITATE Disposition: manolo Davalos with [facility] hospice Plan - Discharge Summary Discharge Rx Participant: No New Discharge Prescriptions: Continue Triamcinolone 0.1% Cream [Kenalog 0.1% Cream] 1 applicatio TOPICAL DAILY@0800 traZODone HCL 150 mg PO HS@1800 Nystatin 100,000Unit/gm Cream [Mycostatin Cream] 1 applic TOPICAL BID@0800,1800 Clotrimazole/Betameth Cream [Lotrisone] 1 applic TOPICAL BID@0800,1999 Acetaminophen Tab [Tylenol] 650 mg PO Q4H PRN PRN Reason: FEVER, PAIN, OR HEADACHE Divalproex Sprinkle [Depakote Sprinkle] 250 mg PO BID@0800,1800 QUEtiapine [SEROquel] 25 mg PO BID@0800,1800 Discontinued hydrOXYzine pamoate [Vistaril] 50 mg PO Q4H PRN PRN Reason: Anxiety Mag Hydrox/Aluminum Hyd/Simeth [Mylanta Maximum Strength Liq] 15 ml PO BID PRN PRN Reason: HEARTBURN/INDIGESTION Cyanocobalamin (Vitamin B-12) [Vitamin B-12] 1,000 mcg PO DAILY@0800 Escitalopram [Lexapro] 20 mg PO DAILY@0800 guaiFENesin SYRUP 100MG/5ML [Robitussin] 200 mg PO Q6H PRN PRN Reason: Cough Magnesium Hydroxide [Milk of Magnesia] 2,400 mg PO HS PRN PRN Reason: Constipation Kaolin Pectin Suspension 2 tbsp PO DAILY PRN PRN Reason: Diarrhea Benadryl [place] 2-0.1% 1 applic TOPICAL QID PRN PRN Reason: Skin Irritation Cholecalciferol (Vitamin D3) [Vitamin D3 (125 MCG = 5,000 IU)] 125 mcg PO DAILY@1800 Discharge Medication List Acetaminophen Tab [Tylenol] 650 mg PO Q4H PRN 05/04/21 [History] Clotrimazole/Betameth Cream [Lotrisone] 1 applic TOPICAL BID@0800,199905/04/21 [History] Divalproex Sprinkle [Depakote Sprinkle] 250 mg PO BID@0800,1800 05/04/21 [History] Nystatin 100,000Unit/gm Cream [Mycostatin Cream] 1 applic TOPICAL BID@0800,179905/04/21 [History] QUEtiapine [SEROquel] 25 mg PO BID@0800,1800 05/04/21 [History] Triamcinolone 0.1% Cream [Kenalog 0.1% Cream] 1 applicatio TOPICAL DAILY@0800 05/04/21 [History] traZODone HCL 150 mg PO HS@1800 05/04/21 [History] Follow up Appointment(s)/Referral(s): [facility] - As Needed Renny Mcclendon MD [REFERRING] - 3 Days Discharge Disposition: HOME WITH HOSPICE
== END 2021-05-11 15:36 | disposition hospice, home (50) ==
LOC: EC 13:40 → 4SSUR 17:48 → INTOOBSV 05-11 07:21 → OBSVTOIN 05-11 07:21 → UNDODISIN 05-11 15:36
PROVIDERS: ADMIT Hospitalist; ATTEND Hospitalist
PROC: XW033H6 Introduction of Other New Technology Monoclonal Antibody into Peripheral Vein, Percutaneous Approach, New Technology Group 6 (ICD-10-PCS; principal; 2021-05-11)
DX: G30.9 Alzheimer's disease, unspecified (principal); U07.1 COVID-19; F02.81 Dementia in other diseases classified elsewhere, unspecified severity, with behavioral disturbance; F23 Brief psychotic disorder; F05 Delirium due to known physiological condition; E87.6 Hypokalemia; E86.0 Dehydration; I10 Essential (primary) hypertension; I25.10 Atherosclerotic heart disease of native coronary artery without angina pectoris; E78.5 Hyperlipidemia, unspecified; R62.7 Adult failure to thrive; Z79.82 Long term (current) use of aspirin; Z79.899 Other long term (current) drug therapy; Z85.47 Personal history of malignant neoplasm of testis; Z95.5 Presence of coronary angioplasty implant and graft; Z82.49 Family history of ischemic heart disease and other diseases of the circulatory system; Z66 Do not resuscitate
CPT/HCPCS: 96361 ×3; 82075; 96365; 96366; 96372; 99285; 36415; 93005; 80164; 80053; 82607; 82746; 85025; 81001; 80306; 87635 ×2; 72192; 72125; 70450; G0378 ×8; M0245; G0480; J2060; J3480; J3486; J0131; J3490; 80320